=== PATIENT | male | born 1970 | race Hispanic/Latino ===

== ENCOUNTER 2018-02-26 08:23 | Day surgery (SDC) | payer SELFPAY | END 2018-02-26 14:45 | disposition home or self-care (01) | LOC: DAH 08:23 → EDSTATUS 09:00 → DAH 14:45 | PROVIDERS: ATTEND Family Medicine | DX: C34.11 Malignant neoplasm of upper lobe, right bronchus or lung (principal); Z87.891 Personal history of nicotine dependence; J44.9 Chronic obstructive pulmonary disease, unspecified | CPT/HCPCS: 32405; 88305 ==

== ENCOUNTER 2018-03-27 14:50 | Inpatient (IN) | payer OTHER, SELFPAY ==
[~2018-03-27] VITALS: Ht 172.7 cm; Wt 53.1 kg
[2018-03-27 15:28] LABS: BASOPHILS % (AUTO) 0.1 % (0.0-5.0); EOSINOPHILS % (AUTO) 0.8 % (0.0-8.0); HEMATOCRIT 27.8 % (42-54); MEAN CORPUSCULAR HEMOGLOBIN 27.5 pg (27.0-33.0); MEAN CORPUSCULAR HGB CONC 33.3 g/dL (32.0-36.0); MEAN CORPUSCULAR VOLUME 82.6 fL (79-99); MONOCYTES % (AUTO) 8.7 % (3.0-13.0); NEUTROPHILS % (AUTO) 78.4 % (40.0-77.0); PLATELET COUNT (AUTO) 479 K/uL (130-400); RED BLOOD CELL COUNT(AUTO) 3.37 MIL/uL (4.50-6.20); RED CELL DISTRIBUTION WIDTH 14.5 % (11.0-15.5); WHITE BLOOD COUNT (AUTO) 11.4 K/uL (4.8-10.8)
[2018-03-27] MEDS ORDERED: MORPHINE SULFATE 4 MG/1ML SYG ONE ×2 (15:34→17:14)
[2018-03-27] MEDS ORDERED: SODIUM CHLORIDE 0.9% 1000ML 1,000 ML IV ONE (15:34)
[2018-03-27] MEDS ORDERED: ONDANSETRON HCL 4 MG/2 ML VIAL ONE (15:34)
[2018-03-27 15:37] LABS: CREATININE 0.8 mg/dL (0.5-1.5); POTASSIUM 3.7 mmol/L (3.5-5.1)
[2018-03-27 15:41] LABS: ALBUMIN 2.8 g/dL (3.5-5.0); BILIRUBIN,TOTAL 0.2 mg/dL (0.2-1.0); TOTAL PROTEIN, SERUM 7.1 g/dL (6.0-8.3)
[2018-03-27 16:00] VITALS: BP 99/67
[2018-03-27] MEDS ORDERED: ONDANSETRON HCL 4 MG/2 ML VIAL IVP PRN (19:00)
[2018-03-27] MEDS ORDERED: LORAZEPAM 0.5 MG TABLET PO PRN (19:30)
[2018-03-27 19:55] VITALS: BP 106/64
[2018-03-27] MEDS: FAMOTIDINE 20MG TAB 20 MG TAB PO SCH (21:00)
[2018-03-27] MEDS: MORPHINE SULFATE 2 MG/ML 1ML SYG IVP PRN (21:27)
[2018-03-27 23:18] VITALS: BP 111/64
[2018-03-27] MEDS: HYDROMORPHONE 1 MG/1 ML AMP IVP PRN (23:25)
[2018-03-28] MEDS: MORPHINE SULFATE 2 MG/ML 1ML SYG IVP PRN ×3 (02:18→12:10)
[2018-03-28 03:37] VITALS: BP 107/69
[2018-03-28 08:00] VITALS: BP 110/68
[2018-03-28] MEDS: FAMOTIDINE 20MG TAB 20 MG TAB PO SCH ×2 (08:26→21:21)
[2018-03-28] MEDS: HYDROMORPHONE 1 MG/1 ML AMP IVP PRN ×4 (08:28→22:34)
[2018-03-28] MEDS: ENOXAPARIN SODIUM 40 MG/0.4 ML SYRINGE SQ SCH (08:29)
[2018-03-28 12:00] VITALS: BP 106/61
[2018-03-28] MEDS ORDERED: PAMIDRONATE DISODIUM 90MG VIAL 90 MG in SODIUM CHLORIDE 0.9% 1000ML 1,000 ML IV SCH (12:00)
[2018-03-28] MEDS ORDERED: GADOBENATE DIMEGLUMINE 20 ML IV ONE (12:32)
[2018-03-28] MEDS ORDERED: IOPAMIDOL-370 100 ML VIAL IV ONE (15:10)
[2018-03-28 16:00] VITALS: BP 121/76
[2018-03-28 19:00] VITALS: BP 105/68
[2018-03-28] MEDS: MORPHINE SULFATE 15 MG TABLET.SA PO SCH (21:22)
[2018-03-28 23:00] VITALS: BP 102/60
[2018-03-29 03:00] VITALS: BP 110/65
[2018-03-29] MEDS: HYDROMORPHONE 1 MG/1 ML AMP IVP PRN (04:52)
[2018-03-29 08:00] VITALS: BP 102/64
[2018-03-29] MEDS: FAMOTIDINE 20MG TAB 20 MG TAB PO SCH ×2 (08:52→19:51)
[2018-03-29] MEDS: MORPHINE SULFATE 15 MG TABLET.SA PO SCH ×2 (08:52→19:52)
[2018-03-29] MEDS: ENOXAPARIN SODIUM 40 MG/0.4 ML SYRINGE SQ SCH (08:54)
[2018-03-29] MEDS: MORPHINE SULFATE 2 MG/ML 1ML SYG IVP PRN ×2 (10:53→15:49)
[2018-03-29 12:00] VITALS: BP 103/68
[2018-03-29] MEDS ORDERED: DOCUSATE SODIUM 100 MG CAP PO SCH (14:45)
[2018-03-29] MEDS ORDERED: FENTANYL 50 MCG/HR PATCH TD SCH (14:45)
[2018-03-29 16:00] VITALS: BP 102/73
[2018-03-29 19:00] VITALS: BP 111/75
[2018-03-29] MEDS ORDERED: ACETAMINOPHEN 325 MG TAB PO PRN (21:15)
[2018-03-29 23:00] VITALS: BP 117/80
[2018-03-29] MEDS: ACETAMINOPHEN 325 MG TAB PO PRN (23:40)
[2018-03-30 03:00] VITALS: BP 121/73
[2018-03-30 05:45] LABS: BASOPHILS % (AUTO) 0.6 % (0.0-5.0); EOSINOPHILS % (AUTO) 0.6 % (0.0-8.0); HEMATOCRIT 27.3 % (42-54); LYMPHOCYTES % (AUTO) 8.5 % (21.0-51.0); MEAN CORPUSCULAR HEMOGLOBIN 28.4 pg (27.0-33.0); MEAN CORPUSCULAR HGB CONC 34.7 g/dL (32.0-36.0); MEAN CORPUSCULAR VOLUME 81.9 fL (79-99); NEUTROPHILS % (AUTO) 82.3 % (40.0-77.0); PLATELET COUNT (AUTO) 417 K/uL (130-400); RED BLOOD CELL COUNT(AUTO) 3.33 MIL/uL (4.50-6.20); RED CELL DISTRIBUTION WIDTH 14.7 % (11.0-15.5); WHITE BLOOD COUNT (AUTO) 8.9 K/uL (4.8-10.8)
[2018-03-30 05:53] LABS: CREATININE 0.8 mg/dL (0.5-1.5); POTASSIUM 3.5 mmol/L (3.5-5.1)
[2018-03-30 07:00] VITALS: BP 104/67
[2018-03-30] MEDS: FAMOTIDINE 20MG TAB 20 MG TAB PO SCH ×2 (08:37→19:48)
[2018-03-30] MEDS: MORPHINE SULFATE 15 MG TABLET.SA PO SCH ×2 (08:37→19:49)
[2018-03-30] MEDS: ACETAMINOPHEN 325 MG TAB PO PRN (08:39)
[2018-03-30] MEDS: MORPHINE SULFATE 2 MG/ML 1ML SYG IVP PRN ×2 (08:39→12:48)
[2018-03-30] MEDS: ENOXAPARIN SODIUM 40 MG/0.4 ML SYRINGE SQ SCH (08:40)
[2018-03-30 11:00] VITALS: BP 90/65
[2018-03-30 16:00] VITALS: BP 107/69
[2018-03-30 19:16] VITALS: BP 110/67
[2018-03-30 23:26] VITALS: BP 111/73
[2018-03-31] MEDS ORDERED: MORPHINE SULFATE 4 MG/1ML SYG ONE (03:01)
[2018-03-31 03:15] VITALS: BP 86/51
[2018-03-31 07:00] VITALS: BP 94/54
[2018-03-31] MEDS: FAMOTIDINE 20MG TAB 20 MG TAB PO SCH ×2 (09:19→23:14)
[2018-03-31] MEDS: MORPHINE SULFATE 15 MG TABLET.SA PO SCH ×3 (09:19→23:14)
[2018-03-31] MEDS: ENOXAPARIN SODIUM 40 MG/0.4 ML SYRINGE SQ SCH (09:21)
[2018-03-31 09:43] LABS: APPEARANCE,URINE Clear (CLEAR); BILIRUBIN,URINE Negative (NEGATIVE); COLOR,URINE Yellow (YELLOW); GLUCOSE, URINE (UA) Negative (NEGATIVE); KETONES,URINE Negative (NEGATIVE); LEUKOCYTE ESTERASE ,URINE Negative (NEGATIVE); NITRATE,URINE Negative (NEGATIVE); OCCULT BLOOD,URINE Negative (NEGATIVE); PROTEIN,URINE Negative (NEGATIVE)
[2018-03-31 11:00] VITALS: BP 92/56
[2018-03-31] MEDS ORDERED: MORPHINE SULFATE IR 15 MG TAB 15 MG TABLET PO PRN (13:00)
[2018-03-31] MEDS ORDERED: BISACODYL 5 MG TABLET.DR PO PRN (14:45)
[2018-03-31] MEDS ORDERED: FENTANYL 50 MCG/HR PATCH TD SCH (15:30)
[2018-03-31 16:00] VITALS: BP 98/58
[2018-03-31 20:00] VITALS: BP 112/72
[2018-04-01] VITALS (9 sets, daily range): BP systolic 116–137; BP diastolic 69–93
[2018-04-01 05:58] LABS: HEMATOCRIT 27.5 % (42-54); MEAN CORPUSCULAR HEMOGLOBIN 27.3 pg (27.0-33.0); MEAN CORPUSCULAR HGB CONC 33.3 g/dL (32.0-36.0); MEAN CORPUSCULAR VOLUME 82.1 fL (79-99); PLATELET COUNT (AUTO) 395 K/uL (130-400); RED BLOOD CELL COUNT(AUTO) 3.35 MIL/uL (4.50-6.20); RED CELL DISTRIBUTION WIDTH 14.7 % (11.0-15.5); WHITE BLOOD COUNT (AUTO) 8.8 K/uL (4.8-10.8)
[2018-04-01 06:08] LABS: ALBUMIN 2.5 g/dL (3.5-5.0); BILIRUBIN,TOTAL 0.2 mg/dL (0.2-1.0); CREATININE 0.8 mg/dL (0.5-1.5); POTASSIUM 3.3 mmol/L (3.5-5.1)
[2018-04-01] MEDS: HYDROMORPHONE 1 MG/1 ML AMP IVP PRN ×4 (06:16→21:22)
[2018-04-01] MEDS: ENOXAPARIN SODIUM 40 MG/0.4 ML SYRINGE SQ SCH (09:00)
[2018-04-01] MEDS: LIDOCAINE 5% TOPICAL PATCH TP SCH (09:34)
[2018-04-01] MEDS: FAMOTIDINE 20MG TAB 20 MG TAB PO SCH ×2 (09:34→20:56)
[2018-04-01] MEDS: MORPHINE SULFATE 15 MG TABLET.SA PO SCH ×3 (09:34→23:07)
[2018-04-01] MEDS: LACTULOSE 20 GM/30 ML UDCUP PO PRN (10:34)
[2018-04-01 13:36] LABS: INR 1.18 (0.85-1.15); PARTIAL THROMBOPLASTIN TIME 32.9 SEC (26.3-35.5); PROTHROMBIN TIME 12.4 SEC (9.6-11.6)
[2018-04-01] MEDS ORDERED: HYDROMORPHONE 4MG/ML 1ML VIAL ONE (15:27)
[2018-04-01] MEDS ORDERED: LIDOCAINE HCL/EPINEPHRINE 50 ML VIAL IJ ONE (15:29)
[2018-04-01] MEDS ORDERED: LIDOCAINE HCL 2% 20ML ONE (15:30)
[2018-04-01] MEDS ORDERED: POTASSIUM CHLORIDE 20 MEQ ERTAB PO SCH (17:15)
[2018-04-01] MEDS ORDERED: POTASSIUM CHLORIDE 20 MEQ ERTAB PO ONE (17:37)
[2018-04-02 00:18] VITALS: BP 127/70
[2018-04-02 00:20] VITALS: BP 129/72
[2018-04-02] MEDS: HYDROMORPHONE 1 MG/1 ML AMP IVP PRN ×2 (01:38→06:44)
[2018-04-02 04:30] VITALS: BP 129/72
[2018-04-02 04:48] LABS: BASOPHILS % (AUTO) 0.5 % (0.0-5.0); EOSINOPHILS % (AUTO) 0.7 % (0.0-8.0); HEMATOCRIT 27.2 % (42-54); LYMPHOCYTES % (AUTO) 14.4 % (21.0-51.0); MEAN CORPUSCULAR HEMOGLOBIN 27.8 pg (27.0-33.0); MEAN CORPUSCULAR HGB CONC 34.3 g/dL (32.0-36.0); MONOCYTES % (AUTO) 9.1 % (3.0-13.0); NEUTROPHILS % (AUTO) 75.3 % (40.0-77.0); PLATELET COUNT (AUTO) 413 K/uL (130-400); RED BLOOD CELL COUNT(AUTO) 3.35 MIL/uL (4.50-6.20); RED CELL DISTRIBUTION WIDTH 14.9 % (11.0-15.5)
[2018-04-02 04:59] LABS: CREATININE 0.7 mg/dL (0.5-1.5)
[2018-04-02 07:58] VITALS: BP 126/74
[2018-04-02] MEDS: FAMOTIDINE 20MG TAB 20 MG TAB PO SCH (08:17)
[2018-04-02] MEDS: LIDOCAINE 5% TOPICAL PATCH TP SCH (08:18)
[2018-04-02] MEDS: MORPHINE SULFATE 15 MG TABLET.SA PO SCH ×2 (08:18→14:00)
[2018-04-02] MEDS: ENOXAPARIN SODIUM 40 MG/0.4 ML SYRINGE SQ SCH (08:23)
[2018-04-02 10:44] VITALS: BP 122/62
[2018-04-02] MEDS: MORPHINE SULFATE 2 MG/ML 1ML SYG IVP PRN ×2 (12:54→17:09)
[2018-04-02] MEDS: LACTULOSE 20 GM/30 ML UDCUP PO PRN (12:54)
[2018-04-02] MEDS ORDERED: MORP30 PO (14:49)
[2018-04-02 15:16] VITALS: BP 147/78
[2018-04-02] MEDS ORDERED: BISA5TAB12 PO (16:05)
[2018-04-02] MEDS ORDERED: LEVO250T2 PO (16:05)
== END 2018-04-02 20:17 | disposition home or self-care (01) | DRG 948 ==
LOC: EDH 14:50 → EDHIP 14:51 → 3CH 17:56
PROVIDERS: ADMIT Family Medicine; ATTEND Family Medicine
PROC: 0JH63WZ Insertion of Totally Implantable Vascular Access Device into Chest Subcutaneous Tissue and Fascia, Percutaneous Approach (ICD-10-PCS; principal; 2018-04-01)
PROC: 02H633Z Insertion of Infusion Device into Right Atrium, Percutaneous Approach (ICD-10-PCS; 2018-04-01)
PROC: B2141ZZ Fluoroscopy of Right Heart using Low Osmolar Contrast (ICD-10-PCS; 2018-04-01)
DX: G89.3 Neoplasm related pain (acute) (chronic) (principal); C79.51 Secondary malignant neoplasm of bone; C34.91 Malignant neoplasm of unspecified part of right bronchus or lung; E83.52 Hypercalcemia; E88.09 Other disorders of plasma-protein metabolism, not elsewhere classified; D64.9 Anemia, unspecified; Z68.1 Body mass index [BMI] 19.9 or less, adult; F12.90 Cannabis use, unspecified, uncomplicated; G89.4 Chronic pain syndrome; Z85.118 Personal history of other malignant neoplasm of bronchus and lung; Z87.891 Personal history of nicotine dependence; Z60.2 Problems related to living alone; R63.4 Abnormal weight loss; R73.9 Hyperglycemia, unspecified
CPT/HCPCS: 36415; 36561; 70553; 71045; 71260; 74177; 77001; 78306; 80048; 80053; 81003; 82550; 82948; 83970; 84484; 85025; 85027; 85610; 85730; 87040; 93005; A9503; A9577; J1170; J1644; J1650; J2270; J2405; J2430; J3490; J7030; Q9967